=== PATIENT | female | born 1980 | race Caucasian/White ===

== ENCOUNTER 2019-02-01 07:22 | Day surgery (SDC) | payer OTHER ==
[~2019-02-01] VITALS: Ht 167.6 cm; Wt 98.6 kg
[~2019-02-01 07:22] MED LIST: ACET500; ALBIPROI INH; ALBU.083IS; ALBU90I INH; ALBU90OI INH; ALBUIS INH; ALPR.5 PO; AMOX500 PO; AMOXICILLIN; AZIT250 PO; Adalat Cc30 MG PO; Amoxicillin500 MG PO; BENZ100A PO; CEPH500 PO; CIPR500 PO; CITA20; CITA20 PO; CODACEE120 PO; CODGUAEL PO; CYCL10; CYCL10 PO; ERYT500 PO; FAMO20 PO; FISH1000 PO; FLUC150A PO; FLUSAL1005 IH; FLUSAL2505; FLUSAL2505 IH; FLUT.05NI; FLUT110OIA IH; FLUT110OIA INH; Flonase 0.05% N16 GM; GUAI600T33 PO; HYDACE5; HYDACE5 PO; HYDGUAL120 PO; HYDR10 PO; HYDR1TAB94 PO; HYOMAX; IBUP400 PO; IBUP600; IBUP800; IBUP800 PO; LABE200 PO; LISI20 PO; LORA.5; LORA.5 PO; LORA1 PO; LORA2 PO; LORPSEER12 PO; Labetalol HCl300 MG PO; MECL25 PO; MONT10T; MONT10T PO; Macrobid 100 M100 MG PO; NAPR375 PO; NAPR500 PO; NIFE30ER PO; NYQUIL; Norco 5-325 Ta1 EACH PO; OMEP10ER; OMEP20ER PO; OMEP40CA12 PO; ONDA4ODT MM; OXYACE5T PO; Omeprazole20 M1; PANT40 PO; PENVK500; PHENA200 PO; PROM25 PO; Percocet 5-3251 EACH PO; Prednisone10 MG PO; Prednisone20 MG PO; Pyridium200 MG PO; RANI150; RANI150 PO; RXHYDACE PO; RXLORA1 PO; RXOXYACE PO; SERT100; SERT100 PO; SERT50 PO; SUCR1; Ventolin/Prove6.7 GM; ZOLOFT; Zithromax250 MG PO; [UNRECOGNIZED DRUG - OTHER]
--- NOTE | 2019-02-01 08:00 | NUR ---
Ambulatory in Day Surgery History, Chart, Medications and Allergies reviewed before start of procedure.Lungs clear T/O to Auscultation. Patient confirms NPO status and agrees with scheduled surgery. Patient States Post-Procedure ride home has been arranged.
--- NOTE | 2019-02-01 08:12 | NUR ---
02/01/19 0811 Amari Pyle PATIENT DETERMINED TO BE ASA APPROPRIATE FOR PROPOFOL SEDATION PRIOR TO START OF PROCEDURE BY DR. Marcin Jaime Placed3-LEAD EKG REVIEWED WITH PHYSICIAN PRIOR TO START OF PROCEDURE.Patient to ENDO 1History, Chart, Medications and Allergies reviewed before start of procedure. HURRICAINE SPRAY TO OROPHARYX.MONITOR INTACT WITH CONTINUOUS PULSE OXIMETRY AND INTERMITTENT BP.O2 VIA N/C INTACT THROUGHOUT SEDATION/PROCEDURE.
--- NOTE | 2019-02-01 08:35 | NUR ---
PT FROM ENDO ROOM. RECEIVED REPORT FROM SURAJ HAND. PT IS AROUSING. VSS. AT BEDSIDE. NO COMPLAINTS AT THIS TIME.
--- NOTE | 2019-02-01 08:42 | NUR ---
PT IS VERY SLEEPY, EYES SHUT PT STILL TURNED ON LEFT SIDE. WILL LEFT PT SLEEP ALITTLE LONGER.
--- NOTE | 2019-02-01 08:56 | NUR ---
PT IS MORE AWAKE RN ASSISTED PT IN SITTING UP IN BED. PT IS DRINKING JUICE.
--- NOTE | 2019-02-01 09:03 | NUR ---
Discharge instructions reviewed with patient. Patient verbalizes understanding. Copy given to patient to take home. HAS D/C PAPERWORK. NO QUESTIONS OR CONCERNS VOICED
--- NOTE | 2019-02-01 09:10 | NUR ---
PT DRESSED. HAS ALL PEROSONAL BELONGINGS. WILL DRIVE HOME.
== END 2019-02-01 23:04 | disposition home or self-care (01) ==
LOC: ORSCMMR 07:22 → ORD 08:30 → ORSCMMR 08:30
PROVIDERS: Internal Medicine Gastroenterology
PROC: 0DB48ZX Excision of Esophagogastric Junction, Via Natural or Artificial Opening Endoscopic, Diagnostic (ICD-10-PCS; principal; 2019-02-01 08:30)
DX: K21.9 Gastro-esophageal reflux disease without esophagitis (principal); K22.70 Barrett's esophagus without dysplasia; I10 Essential (primary) hypertension; J45.909 Unspecified asthma, uncomplicated; F41.9 Anxiety disorder, unspecified; Z79.899 Other long term (current) drug therapy; E66.9 Obesity, unspecified; Z68.35 Body mass index [BMI] 35.0-35.9, adult
CPT/HCPCS: 88305; J2250; J2704; J7120

== ENCOUNTER → 2021-10-07 | Outpatient (CLI) | payer BC, OTHER ==
[2021-10-10 14:09] LABS: HPV 16 Negative (Negative); HPV 18 Negative (Negative); HPV OTHER HR TYPES Negative (Negative)
== END | disposition home or self-care (01) ==
LOC: LAB SHORT 17:50
PROVIDERS: Family Medicine
DX: Z12.4 Encounter for screening for malignant neoplasm of cervix (principal)
CPT/HCPCS: 87624; G0123

== ENCOUNTER → 2022-10-07 | Outpatient (CLI) | payer OTHER ==
[2022-10-08 15:11] LABS: HPV 16 Negative (Negative); HPV 18 Negative (Negative); HPV OTHER HR TYPES Negative (Negative)
== END | disposition home or self-care (01) ==
LOC: LAB 14:58 → LAB SHORT 14:58
PROVIDERS: Family Medicine
DX: Z12.4 Encounter for screening for malignant neoplasm of cervix (principal)
CPT/HCPCS: 87624; G0145

== ENCOUNTER 2024-02-24 12:27 | Emergency (ER) | payer OTHER, BC ==
[~2024-02-24] VITALS: Ht 167.6 cm; Wt 111.1 kg
[2024-02-24 12:44] VITALS: BP 145/85
[2024-02-24] MEDS ORDERED: CYCL10 PO (14:12)
== END 2024-02-24 16:31 | disposition home or self-care (01) ==
LOC: ER 12:27
DX: R07.2 Precordial pain (principal); M25.511 Pain in right shoulder; I10 Essential (primary) hypertension; V43.52XA Car driver injured in collision with other type car in traffic accident, initial encounter; Z87.891 Personal history of nicotine dependence; Z79.51 Long term (current) use of inhaled steroids; Z79.899 Other long term (current) drug therapy; Z88.1 Allergy status to other antibiotic agents; Z88.8 Allergy status to other drugs, medicaments and biological substances
CPT/HCPCS: 71046; 99284-25

== ENCOUNTER 2024-07-04 19:43 | Emergency (ER) | payer BC, OTHER ==
[~2024-07-04] VITALS: Ht 165.1 cm; Wt 90.7 kg
[2024-07-04 20:12] LABS: BASOPHILS ABSOLUTE AUTO 0.07 K/mm3 (0.00-0.23); BASOPHILS PERCENT AUTO 1 % (0-2); EOSINOPHILS ABSOLUTE AUTO 0.13 K/mm3 (0.00-0.68); EOSINOPHILS PERCENT AUTO 1 % (0-6); Hematocrit 40.1 % (33.0-51.0); Hemoglobin 13.1 g/dL (11.5-16.0); IMMATURE GRAN ABSOLUTE AUTO 0.02 K/mm3 (0.00-0.10); IMMATURE GRAN PERCENT AUTO 0 % (0-1); LYMPHOCYTES ABSOLUTE AUTO 3.65 K/mm3 (0.84-5.20); LYMPHOCYTES PERCENT AUTO 40 % (21-46); MONOCYTES ABSOLUTE AUTO 0.61 K/mm3 (0.16-1.47); MONOCYTES PERCENT AUTO 7 % (4-13); Mean Corpuscular HGB 29.6 pg (26.0-34.0); Mean Corpuscular HGB Conc 32.7 g/dL (31.5-36.5); Mean Corpuscular Volume 91 fL (80-100); Mean Platelet Volume 10.4 fL (9.1-12.4); NEUTROPHILS ABSOLUTE AUTO 4.67 K/mm3 (1.96-9.15); NEUTROPHILS PERCENT AUTO 51 % (41-73); Platelet Count 359 K/mm3 (150-400); RDW Standard Deviation 46.6 fL (35.1-46.3); Red Blood Cell Count 4.43 M/mm3 (3.80-5.20); White Blood Cell Count 9.15 K/mm3 (4.00-11.30)
[2024-07-04 20:32] LABS: Albumin, Blood 3.9 g/dL (3.4-5.0); Albumin/Globulin Ratio 1.1 (0.8-1.8); Bilirubin, Total 0.4 mg/dL (0.1-1.0); Bun/Creatinine Ratio 15.3 (12.0-20.0); Calcium, Blood 9.2 mg/dL (8.5-10.1); Creatinine, Blood 0.79 mg/dL (0.40-1.00); Globulin, Blood 3.4 g/dL (2.2-4.0); Potassium, Blood 3.6 mmol/L (3.5-5.5); Total Protein, Blood 7.3 g/dL (6.4-8.2)
[2024-07-05 01:25] VITALS: BP 138/92
== END 2024-07-05 01:28 | disposition home or self-care (01) ==
LOC: ER 19:43
PROVIDERS: Emergency Medicine
DX: K21.9 Gastro-esophageal reflux disease without esophagitis (principal); I10 Essential (primary) hypertension; Z98.84 Bariatric surgery status; Z87.891 Personal history of nicotine dependence; Z88.1 Allergy status to other antibiotic agents; Z88.8 Allergy status to other drugs, medicaments and biological substances; Z79.899 Other long term (current) drug therapy
CPT/HCPCS: 80053; 83690; 84484; 85025; 93005; 93010; 99283-25